=== PATIENT | male | born 2000 | race Caucasian/White ===

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

== ENCOUNTER 2023-12-27 16:49 | Emergency (ER) | payer BC ==
[2023-12-27 17:02] VITALS: BP 132/79; PULSE 78; RESP 16; TEMP 98
[2023-12-27] MEDS: LIDOCAINE/EPINEPHR/TETRACAINE 5 ML BOTTLE TOPICAL ONE (17:25)
[2023-12-27] MEDS: TOPICAL SKIN ADHESIVE 1 EACH AMP TOPICAL ONE (17:48)
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
== END 2023-12-27 19:05 | disposition home or self-care (01) ==
LOC: EC 16:49
CPT/HCPCS: 12001; 99283